=== PATIENT | female | born 1975 | race Caucasian/White ===

== ENCOUNTER 2023-08-18 09:01 | Outpatient (RCR) | payer BC, SELFPAY | END 2023-08-18 23:59 | disposition home or self-care (01) | LOC: ROT 09:01 | PROVIDERS: ATTENDING PHYSICIAN Orthopaedic Surgery Hand Surgery; FAMILY PHYSICIAN Student in an Organized Health Care Education/Training Program | DX: M67.431 Ganglion, right wrist (principal); Z73.6 Limitation of activities due to disability | CPT/HCPCS: 97018; 97022; 97035; 97110; 97140; 97166; 97535 ==

== ENCOUNTER 2023-08-31 14:23 | Outpatient (RCR) | payer BC, SELFPAY | END 2023-09-07 14:09 | disposition home or self-care (01) | LOC: ROT 14:23 | PROVIDERS: ATTENDING PHYSICIAN Orthopaedic Surgery Hand Surgery; FAMILY PHYSICIAN Student in an Organized Health Care Education/Training Program | DX: Z47.89 Encounter for other orthopedic aftercare (principal); M67.431 Ganglion, right wrist; Z73.6 Limitation of activities due to disability; M25.531 Pain in right wrist | CPT/HCPCS: 97018; 97035; 97110; 97140 ==

== ENCOUNTER → 2023-11-01 17:15 | Outpatient (REF) | payer BC, SELFPAY ==
[2023-11-01 17:56] LABS: Erythrocyte Sed Rate 1 mm/hour (0-20)
[2023-11-01 19:31] LABS: C-Reactive Protein < 5.00 mg/L (0.0-10.00)
[2023-11-02 14:49] LABS: Rheumatoid Agglutinin Less Than 10 IU (<10 IU)
[2023-11-03 15:27] LABS: CCP Antibody IgG/IgA 3 Units (0-19)
[2023-11-03 20:02] LABS: HLA-B27 Negative (Negative)
[2023-11-03 22:58] LABS: ANA, IgG Reflex to HEp-2 None Detected (None Detected)
== END ==
LOC: REG 17:15
PROVIDERS: ATTENDING PHYSICIAN Student in an Organized Health Care Education/Training Program
DX: M94.0 Chondrocostal junction syndrome [Tietze] (principal)
CPT/HCPCS: 36415; 85652; 86038; 86140; 86200; 86430; 86812

== ENCOUNTER → 2024-08-01 10:55 | Outpatient (REF) | payer BC, SELFPAY | LOC: WDC 10:55 | PROVIDERS: ATTENDING PHYSICIAN Internal Medicine Hematology & Oncology; FAMILY PHYSICIAN Student in an Organized Health Care Education/Training Program | DX: Z12.31 Encounter for screening mammogram for malignant neoplasm of breast (principal) | CPT/HCPCS: 77063; 77067 ==

== ENCOUNTER → 2024-10-10 09:56 | Outpatient (REF) | payer BC, SELFPAY | LOC: WDC 09:56 | PROVIDERS: ATTENDING PHYSICIAN Internal Medicine Hematology & Oncology; FAMILY PHYSICIAN Student in an Organized Health Care Education/Training Program | DX: N63.20 Unspecified lump in the left breast, unspecified quadrant (principal); N64.4 Mastodynia | CPT/HCPCS: 76642 ==

== ENCOUNTER → 2025-08-07 10:43 | Outpatient (REF) | payer BC, SELFPAY | LOC: WDC 10:43 | PROVIDERS: ATTENDING PHYSICIAN Internal Medicine Hematology & Oncology; FAMILY PHYSICIAN Student in an Organized Health Care Education/Training Program | DX: Z12.31 Encounter for screening mammogram for malignant neoplasm of breast (principal) | CPT/HCPCS: 77063; 77067 ==